=== PATIENT | female | born 1960 | race Caucasian/White ===

== ENCOUNTER 2022-08-27 14:21 | Outpatient (CLI) | payer BC, SELFPAY ==
--- NOTE | 2022-08-27 14:30 | DI.RAD_ITS ---
Exam(s) XR KNEE RT 3V AP,LAT,LELA EXAM: XR KNEE RT 3V AP,LAT,LELA CLINICAL HISTORY: pain. TECHNIQUE: 2D digital imaging was performed of the right knee. Three views obtained. AP, lateral an d PA tunnel views were obtained. COMPARISON: CR,DX Knee 2 Views Right - [id number] from 01/16/2019 FINDINGS: BONES: No acute fracture is present. No bony destructive lesion is seen. JOINTS: There is marked narrowing of the medial femoral tibial joint. Prominent spurring is seen at the medial femoral tibial and patellofemoral joints. No joint effusion is seen. SOFT TISSUE: Normal. IMPRESSION: Osteoarthritis of the right knee. DATA REPOSITORY: RADIATION DOSE DELIVERED:
== END 2022-08-27 14:22 | disposition home or self-care (01) ==
LOC: DIORS 14:21
PROVIDERS: Visit Provider Physician Assistant
DX: M17.11 Unilateral primary osteoarthritis, right knee (principal)
CPT/HCPCS: 73562